=== PATIENT | female | born 1965 | race American Indian/Alaskan Native ===

== ENCOUNTER 2017-12-26 14:24 | Outpatient (CLI) | payer BC, OTHER ==
--- NOTE | 2017-12-27 09:27 | XRay Report ---
THORACIC SPINE 2 VIEWS: 12/26/17 14:24:00 CLINICAL: Upper back pain. FINDINGS: Mild anterior wedging of the T8 vertebral body with no fracture lines. The Iressa bodies are normal in height. The disc spaces are normal. Small anterior osteophytes from T5-6 through T8-9. The pedicles are intact. Lateral osteophytes most prominent at T8-9. IMPRESSION: Probable remote mild T8 anterior wedge compression fracture with mild spondylosis from T5-6 through T8-9.
--- NOTE | 2017-12-27 10:30 | XRay Report ---
CERVICAL SPINE SERIES THREE VIEWS: 12/26/17 14:24:00 CLINICAL: Neck pain. FINDINGS: Relatively uniform decrease height of the C5 and C6 vertebral bodies and less decreased height of other vertebral bodies. No fracture lines. Normal alignment. The disc spaces are preserved. Moderate spondylosis with anterior osteophytes from C3-4 through C6-7. IMPRESSION: Moderate spondylosis.
== END 2017-12-26 14:25 | disposition home or self-care (01) ==
LOC: SPVIMAG 14:24
PROVIDERS: ATTEND Physical Medicine & Rehabilitation
DX: M48.54XA Collapsed vertebra, not elsewhere classified, thoracic region, initial encounter for fracture (principal); M47.893 Other spondylosis, cervicothoracic region
CPT/HCPCS: 72040; 72070